=== PATIENT | male | born 1985 | race African-American/Black ===

== ENCOUNTER 2018-03-17 15:31 | Emergency (ER) | payer SELFPAY ==
[~2018-03-17] VITALS: Ht 185.4 cm; Wt 86.2 kg
[2018-03-17 17:10] VITALS: BP 114/84
== END 2018-03-17 17:09 | disposition home or self-care (01) ==
LOC: ED 15:31
DX: K40.90 Unilateral inguinal hernia, without obstruction or gangrene, not specified as recurrent (principal)